=== PATIENT | male | born 1985 | race Two or more races ===

== ENCOUNTER 2021-05-04 21:47 | Emergency (ER) | payer SELFPAY ==
--- NOTE | 2021-05-04 21:50 | NUR ---
Attempted to triage pt, pt was not found in ER waiting room or outside ER.
== END 2021-05-04 21:55 | disposition left against medical advice (07) ==
LOC: ER 21:55
DX: Z53.21 Procedure and treatment not carried out due to patient leaving prior to being seen by health care provider (principal)

== ENCOUNTER 2021-05-04 22:01 | Emergency (ER) | payer SELFPAY ==
[~2021-05-04] VITALS: Ht 170.2 cm; Wt 82.6 kg
[2021-05-04] MEDS ORDERED: LIDOCAINE 1%-EPI 1:100,000 20 ML VIAL IJ ONE (22:45)
[2021-05-04] MEDS ORDERED: TDAP DIPH,PERTUSS,TET VAC/PF 0.5 ML DISP.SYRIN IM ONE ×2 (22:45→23:03)
--- NOTE | 2021-05-04 23:25 | NUR ---
Patient discharged to home in stable condition. Written and verbal after care instructions given. Patient verbalizes understanding of instructions. Stressed follow up or return to ER for worsening s/s. Steady gait. Picked up by girlfriend.
[2021-05-04 23:26] VITALS: BP 122/70
== END 2021-05-04 23:25 | disposition home or self-care (01) ==
LOC: ER 22:03
DX: S01.111A Laceration without foreign body of right eyelid and periocular area, initial encounter (principal); Y04.2XXA Assault by strike against or bumped into by another person, initial encounter; Y93.89 Activity, other specified; Y92.89 Other specified places as the place of occurrence of the external cause; Y99.8 Other external cause status
CPT/HCPCS: 90715; A4663